=== PATIENT | female | born 1990 | race African-American/Black ===

== ENCOUNTER 2016-11-25 08:48 | Emergency (ER) | payer OTHER ==
[2016-11-25 09:50] LABS: BASOPHIL 0.6 % (0-2); EOSINOPHIL 3.6 % (0-5); HCT 43.1 % (37.0-47.0); LYMPHOCYTE 25.4 % (15-48); MCH 29.5 pg (25.0-31.0); MCHC 32.5 g/dL (32.0-36.0); MCV 90.9 fL (78.0-100.0); MONOCYTE 5.4 % (0-12); MPV 8.8 fL (6.0-9.5); PLT 379 K/uL (150-400); RBC 4.74 M/uL (4.20-5.40); RDW 13.1 % (11.5-14.0); WBC 14.5 K/uL (4.0-10.5)
[2016-11-25 09:53] LABS: INR 0.87 (0.9-1.2); PROTHROMBIN TIME 11.5 SECONDS (11.7-14.0)
[2016-11-25 09:55] LABS: D-DIMER 0.33 ug/mLFEU (0.00-0.41)
[2016-11-25 10:40] LABS: ALBUMIN 4.3 g/dL (3.5-5.0); BILIRUBIN - TOTAL 0.2 mg/dL (0.1-1.0); CREATININE 0.8 mg/dL (0.5-1.0); GLOBULIN (CALCULATION) 3.3 g/dL (2.2-4.2); TOTAL PROTEIN 7.6 g/dL (6.4-8.3)
[2017-05-30] MEDS ORDERED: MOTRIN600 MG PO (11:35)
[2017-05-30] MEDS ORDERED: NORCO 5-325 TA1 EACH PO (11:36)
== END 2016-11-25 11:30 | disposition home or self-care (01) ==
LOC: FER 08:48
PROVIDERS: Internal Medicine
DX: J06.9 Acute upper respiratory infection, unspecified (principal); F41.9 Anxiety disorder, unspecified; F32.9 Major depressive disorder, single episode, unspecified; F17.200 Nicotine dependence, unspecified, uncomplicated
CPT/HCPCS: 36415; 71020; 80053; 84484; 85025; 85379; 85610; 85730; 93005; J1885

== ENCOUNTER 2021-01-18 19:38 | Emergency (ER) | payer OTHER ==
[~2021-01-18 19:38] MED LIST: AUGMENTIN 875-1 EACH PO; BACTRIM DS TAB1 EACH PO; BENADRYL25 MG PO; EPIPEN0.3 MG/0.3 IN; K-DUR20 MEQ PO; KEFLEX250 MG PO; LEVAQUIN500 MG PO; LEXAPRO 10MG TA10 MG PO; MACROBID100 MG PO; MEDROL 4MG DOSEP4 MG PO; METRONIDAZOLE500 MG PO; MOBIC7.5 MG PO; MOTRIN600 MG PO; NAPROSYN375 MG PO; NORCO 5-325 TA1 EACH PO; ONDANSETRON ODT4 MG PO; PROAIR HFA8.5 GM INH; PROZAC20 MG PO; SUBOXONE 12 MG1 EACH PO; TESSALON PERLE100 MG PO; VENTOLIN HFA IN18 GM INH; ZPAK PO; ZYRTEC10 M3 PO
[2021-01-18 20:41] LABS: BILIRUBIN NEGATIVE (NEGATIVE); BLOOD 2+ Ery/uL (NEGATIVE); CLARITY CLEAR (CLEAR); COLOR YELLOW (YELLOW); GLUCOSE (U) NORMAL (NORMAL); LEUKOCYTES TRACE Leu/uL (NEGATIVE); NITRITE NEGATIVE (NEGATIVE); PROTEIN NEGATIVE (NEGATIVE); SPECIFIC GRAVITY 1.015 (1.001-1.030)
[2021-01-18 21:04] LABS: BASOPHIL 0.3 % (0-2); EOSINOPHIL 4.9 % (0-5); HCT 29.4 % (37.0-47.0); HGB 9.5 g/dl (12.5-16.0); LYMPHOCYTE 19.9 % (15-48); MCH 29.1 pg (25.0-31.0); MCHC 32.3 g/dL (32.0-36.0); MCV 89.9 fL (78.0-100.0); MONOCYTE 5.5 % (0-12); MPV 8.5 fL (6.0-9.5); NEUTROPHIL 68.9 % (41-80); NRBC 0; PLT 283 K/uL (150-400); RBC 3.27 M/uL (4.20-5.40); RDW 12.6 % (11.5-14.0)
[2021-01-18 21:05] LABS: AMPHETAMINES NEGATIVE (NEGATIVE); BACTERIA TRACE; BARBITURATES NEGATIVE (NEGATIVE); ECSTASY (MDMA) NEGATIVE (NEGATIVE); MARIJUANA (THC) NEGATIVE (NEGATIVE); METHADONE NEGATIVE (NEGATIVE); OPIATES NEGATIVE (NEGATIVE); OXYCODONE NEGATIVE (NEGATIVE); URINARY WBC RARE
[2021-01-18 21:18] LABS: INR 0.97 (0.9-1.2); MONOSPOT (MONONUCLEOSIS) NEGATIVE (NEGATIVE); PROTHROMBIN TIME 12.2 SECONDS (11.4-13.6); PTT 39.2 SECONDS (22.2-34.7)
[2021-01-18 21:29] LABS: LACTIC ACID 0.6 mmol/L (0.4-1.9)
[2021-01-18 21:32] LABS: ALBUMIN 2.3 g/dL (3.4-5.0); BILIRUBIN - TOTAL 0.3 mg/dL (0.2-1.0); C-REACTIVE PROTEIN 16.3 mg/dL (<=0.90); CREATININE 0.8 mg/dL (0.51-0.95); GLOBULIN (CALCULATION) 4.4 g/dL; POTASSIUM 3.7 mmol/L (3.5-5.1); TOTAL PROTEIN 6.7 g/dL (6.4-8.2)
[2021-01-19] MEDS ORDERED: PERCOCET 5-3251 EACH PO (00:32)
[2021-01-19] MEDS ORDERED: CLEOCIN300 MG PO (00:32)
== END 2021-01-19 00:55 | disposition home or self-care (01) ==
LOC: FER 19:38
PROVIDERS: Emergency Medicine Emergency Medical Services
DX: L03.311 Cellulitis of abdominal wall (principal); R60.0 Localized edema; F17.210 Nicotine dependence, cigarettes, uncomplicated; Z87.440 Personal history of urinary (tract) infections; Z90.49 Acquired absence of other specified parts of digestive tract; Z98.890 Other specified postprocedural states
CPT/HCPCS: 36415; 80053; 80305; 81001; 83605; 84145; 85025; 85610; 85730; 86140; 86308; 87040; 87880; J1170; J1885; J2405; Q9967